=== PATIENT | female | born 1985 | race Caucasian/White ===

== ENCOUNTER 2024-05-19 13:31 | Inpatient (IN) | payer OTHER ==
[2024-05-18 22:30] VITALS: BP 113/69; TEMP 98.7; O2SAT 96
[~2024-05-19] VITALS: Ht 154.9 cm; Wt 71.2 kg
--- NOTE | 2024-05-19 13:58 | NUR ---
"Abdominal Pain started 3days ago feel Bloated/crampy"
--- NOTE | 2024-05-19 14:50 | NUR ---
mineral technologist at bedside
[2024-05-19 15:34] LABS: BASOPHILS % (AUTO) 0.6 % (0.0-2.0); EOSINOPHILS # (AUTO) 0.1 K/uL (0.0-0.7); EOSINOPHILS % (AUTO) 1.6 % (0.0-6.0); HEMATOCRIT 39 % (33-45); HEMOGLOBIN 13.3 g/dL (11.5-14.8); LYMPHOCYTES # (AUTO) 1.8 K/uL (0.8-4.8); LYMPHOCYTES % (AUTO) 21.8 % (20.0-44.0); MEAN CORPUSCULAR HEMOGLOBIN 30 PG (26.0-33.0); MEAN CORPUSCULAR HGB CONC 34 g/dl (31.0-36.0); MEAN CORPUSCULAR VOLUME 89 fL (82-100); MONOCYTES # (AUTO) 0.7 K/uL (0.1-1.30); MONOCYTES % (AUTO) 8.6 % (2.0-12.0); NEUTROPHILS # (AUTO) 5.5 K/uL (1.8-8.9); NEUTROPHILS % (AUTO) 67.4 % (43.0-81.0); PLATELET COUNT (AUTO) 300 K/uL (150-450); RED BLOOD CELL COUNT(AUTO) 4.39 MIL/uL (4.0-5.2); RED CELL DISTRIBUTION WIDTH 13.6 % (11.5-15.0); WHITE BLOOD COUNT (AUTO) 8.2 K/uL (4.3-11.0)
[2024-05-19 15:41] LABS: CALCIUM, SERUM 9.4 mg/dL (8.5-10.1); CREATININE 0.7 mg/dL (0.6-1.3); POTASSIUM 4.4 mmol/L (3.5-5.1)
[2024-05-19 15:46] LABS: BILIRUBIN,DIRECT 0.1 mg/dL (0.0-0.2); BILIRUBIN,TOTAL 0.7 mg/dL (0.2-1.0); TOTAL PROTEIN, SERUM 7.8 g/dL (6.4-8.2)
[2024-05-19 16:44] LABS: APPEARANCE,URINE CLEAR (CLEAR); BILIRUBIN,URINE NEGATIVE (NEGATIVE); BLOOD, URINE 2+ Ery/uL (NEGATIVE); COLOR,URINE YELLOW (YELLOW); KETONES,URINE NEGATIVE (NEGATIVE); LEUKOCYTE ESTERASE ,URINE 1+ (NEGATIVE); NITRITE, URINE NEGATIVE (NEGATIVE); PROTEIN,URINE NEGATIVE (NEGATIVE); UGLUCOSE NEGATIVE (NEGATIVE)
[2024-05-19 16:46] LABS: PREGNANCY TEST URINE QUAL NEGATIVE (NEGATIVE)
[2024-05-19 16:52] LABS: ADD URINE CULTURE YES; BACTERIA,URINE 1+ /HPF (None Seen); RBC,URINE 21-50 /HPF (0-2)
[2024-05-19 16:53] LABS: MUCUS,URINE Few /LPF (None Seen)
--- NOTE | 2024-05-19 17:12 | NUR ---
DELAY IN HCG RESULTS, CAME IN @1640HRS
--- NOTE | 2024-05-19 17:45 | NUR ---
Patient to CT via [facility]
[2024-05-19] MEDS ORDERED: CT SWABBABLE VALVE TRANS SET 1 EA INFUS.SET MC ONE (17:46)
[2024-05-19] MEDS ORDERED: IV NS 0.9% 250 ML IV ONE (17:46)
[2024-05-19] MEDS ORDERED: IOHEXOL-300 100 ML VIAL IV ONE (17:46)
--- NOTE | 2024-05-19 17:58 | NUR ---
Back from CT
--- NOTE | 2024-05-19 18:15 | NUR ---
GEN SURGERY PAGED
[2024-05-19] MEDS ORDERED: SUMA100T16 PO (18:29)
[2024-05-19] MEDS ORDERED: TOPI50TA24 PO (18:29)
--- NOTE | 2024-05-19 18:52 | NUR ---
Move sheet submitted (appendicitis, stable, Med Surg)
[2024-05-19] MEDS ORDERED: ANESTHESIA TRAY IN PYXIS 1 EA TRAY MC ONE ×2 (19:51→22:30)
--- NOTE | 2024-05-19 19:56 | NUR ---
Reportr given Conchis
[2024-05-19] MEDS ORDERED: ROCURONIUM BROMIDE 50 MG/5 ML ONE (20:24)
[2024-05-19] MEDS ORDERED: FENTANYL PF 250MCG/5ML AMPUL ONE (20:24)
[2024-05-19] MEDS ORDERED: SEVOFLURANE 250 ML BOTTLE IH ONE (20:24)
[2024-05-19] MEDS ORDERED: MIDAZOLAM HCL 2 MG/2ML VIAL ONE (20:24)
[2024-05-19] MEDS ORDERED: MORPHINE SULFATE INJ 2 MG/ML DISP.SYRIN IV PRN (20:30)
[2024-05-19] MEDS ORDERED: MAG HYDROX/AL HYDROX/SIMETH 30 ML UDC PO PRN (20:30)
[2024-05-19] MEDS ORDERED: MAGNESIUM HYDROXIDE 30 ML UDC PO PRN (20:30)
[2024-05-19] MEDS ORDERED: ONDANSETRON HCL/PF 4 MG/2 ML VIAL IVP PRN (20:30)
[2024-05-19] MEDS ORDERED: BUPIVACAINE MPF 0.5% W/EPI INJ 30 ML VIAL ONE (21:15)
[2024-05-19 22:30] VITALS: BP 113/69; TEMP 98.7; O2SAT 97
--- NOTE | 2024-05-19 22:30 | NUR ---
MS RESTAURANT HOST NOTES REPORT RECEIVED FROM MAGDALENE JULIO. PATIENT TRANSFERRED FROM OR VIA [facility] WITH NO SIGNS OF DISTRESS. AT BEDSIDE. PATIENT IS A/O X 4. S/P LAPAROSCOPIC APPENDECTOMY AND TRANSVERSES ABDOMINUS PLAIN BLOCK. ON ROOM AIR, BREATHING AND EVEN, SATURATING @ 97%. BP: 113/69 HR: 100. SKIN ASSESSMENT DONE, PATIENT WITH 4 SMALL ABDOMINAL SUTURES WITH STERI STRIPS, CLEAN, DRY AND INTACT. WILL CARRY OUT ACTIVE MD ORDERS. SAFETY MEASURES IN PLACE WITH BED IN LOWEST LOCKED POSITION, SIDE RAILS UP X 2, CALL LIGHT AND TRAY WITHIN EASY REACH. PLAN OF CARE ONGOING.
[2024-05-19] MEDS ORDERED: PIPERACI/TAZO 3.375GM/D5W 50ML PB IV ONE (23:15)
[2024-05-19] MEDS: TOPIRAMATE 100 MG TABLET PO SCH (23:54)
[2024-05-19] MEDS: PIPERACILLIN /TAZOBACTAM 3.375 G in IV D5W 50 ML IV SCH (23:54)
[2024-05-20] MEDS ORDERED: PIPERACILLIN /TAZOBACTAM 3.375 G in IV D5W 50 ML IV SCH
[2024-05-20] MEDS: KETOROLAC TROMETHAMINE 15 MG/ML VIAL IV ONE (00:49)
--- NOTE | 2024-05-20 00:55 | NUR ---
RN NOTES- PATIENT REFUSED MORPHINE OR ANY OPIOIDS FOR PAIN, REPORTS THAT SHE IS EXPERIENCING DIZZINESS WHEN TAKING THE MEDICATION. INFORMED MEDICAL PROGRAM SPECIALIST NARENDRA, ORDERED ONE TIME DOSE OF TORADOL 30MG IV. WILL MONITOR FOR ANY SIDE EFFECT OF THE MEDICATION. PLAN OF CARE ONGOING.
[2024-05-20] MEDS ORDERED: PIPERACI/TAZO 3.375GM/D5W 50ML PB IV ONE (05:07)
[2024-05-20] MEDS: ACETAMINOPHEN 325 MG TABLET PO PRN (05:35)
--- NOTE | 2024-05-20 05:36 | NUR ---
RN NOTES- PATIENT C/O OF HEADACHE WITH PAIN LEVEL OF 3/10. TYLENOL GIVEN PRN. BP: 105/68 HR: 94. DENIES ANY ACUTE RESPIRATORY DISTRESS AT THIS TIME. PLAN OF CARE ONGOING.
[2024-05-20 06:11] LABS: BASOPHILS % (AUTO) 0.1 % (0.0-2.0); HEMATOCRIT 38 % (33-45); HEMOGLOBIN 12.8 g/dL (11.5-14.8); LYMPHOCYTES # (AUTO) 0.7 K/uL (0.8-4.8); LYMPHOCYTES % (AUTO) 5.5 % (20.0-44.0); MEAN CORPUSCULAR HEMOGLOBIN 30 PG (26.0-33.0); MEAN CORPUSCULAR HGB CONC 34 g/dl (31.0-36.0); MEAN CORPUSCULAR VOLUME 88 fL (82-100); MONOCYTES # (AUTO) 0.4 K/uL (0.1-1.30); MONOCYTES % (AUTO) 2.8 % (2.0-12.0); NEUTROPHILS # (AUTO) 12.1 K/uL (1.8-8.9); NEUTROPHILS % (AUTO) 91.6 % (43.0-81.0); PLATELET COUNT (AUTO) 296 K/uL (150-450); RED BLOOD CELL COUNT(AUTO) 4.27 MIL/uL (4.0-5.2); WHITE BLOOD COUNT (AUTO) 13.2 K/uL (4.3-11.0)
--- NOTE | 2024-05-20 06:46 | NUR ---
MS RN CLOSING NOTES PATIENT AWAKE IN BED, WATCHING TV. A/O X 4. STABLE ON ROOM AIR. IV ACCESS LEFT ANTECUBITAL #20G ON SALINE LOCK, INTACT, PATENT AND FLUSHING WELL. PATIENT IS ON FULL LIQUID DIET THEN ADVANCE TOLERATED. PATIENT IS USING BEDPAN AND URINATED 6 TIMES. S/P LAPAROSCOPIC APPENDECTOMY WITH 4 SMALL ABDOMINAL SUTURES ON STERI STRIPS. ALL NEEDS ATTENDED. SAFETY MEASURES MAINTAINED DURING SHIFT. WILL ENDORSE TO THE NEXT NURSE ON DUTY FOR CONTINUITY OF CARE.
[2024-05-20 06:56] LABS: CALCIUM, SERUM 9.3 mg/dL (8.5-10.1); CREATININE 0.7 mg/dL (0.6-1.3); MAGNESIUM 2.1 mg/dL (1.8-2.4); PHOSPHORUS 3.1 mg/dL (2.5-4.9); POTASSIUM 4.1 mmol/L (3.5-5.1)
--- NOTE | 2024-05-20 07:25 | NUR ---
RN OPENING NOTE Received pt in bed, awake. On room air, tolerating well. A/O x 4, able to make needs known, no c/o pain/discomfort at this time. IV access in LAC #18g, sl. Surgical incision in abdomen noted. Safety measures maintained. Will continue with plan of care.
[2024-05-20] MEDS ORDERED: HYDROCODONE/APAP 5/325MG TABLET PO PRN (08:00)
[2024-05-20 08:17] VITALS: BP 106/72; TEMP 98.6; O2SAT 98
[2024-05-20] MEDS: PANTOPRAZOLE 40 MG VIAL IV SCH (08:19)
[2024-05-20] MEDS: CIPROFLOXACIN IV RTU 200 ML IV SCH (08:19)
[2024-05-20] MEDS: SUMATRIPTAN SUCCINATE 100 MG TABLET PO PRN (08:51)
--- NOTE | 2024-05-20 08:51 | NUR ---
RN NOTE Pt c/o migraine, Imitrex 100mg po prn given, will continue to monitor.
[2024-05-20] MEDS: PIPERACILLIN /TAZOBACTAM 3.375 G in IV D5W 50 ML IV SCH (12:16)
[2024-05-20] MEDS ORDERED: CIPR500S2 PO (12:28)
--- NOTE | 2024-05-20 14:30 | NUR ---
SCHOOL TRAFFIC GUARD NOTE Pt discharged to home in stable condition. A/O x 4, able to make needs known, c/o minimal pain in surgical site, no active bleeding noted. On room air, tolerating well. Tylenol 650mg po prn given prior dc. Discharge packet and teaching given to pt and , verbalized understanding. IV access removed, clean and dry dressing applied, no active bleeding noted. Name armband removed. Pt left the unit at 1425 via wheelchair accompanied by and Therese PORTILLO MD and Charge Nurse aware of discharge.
== END 2024-05-20 14:35 | disposition home or self-care (01) | DRG 398 ==
LOC: ER 13:31 → MED 19:48
PROC: 0DTJ4ZZ Resection of Appendix, Percutaneous Endoscopic Approach (ICD-10-PCS; principal; 2024-05-19)
DX: K35.80 Unspecified acute appendicitis (principal); N39.0 Urinary tract infection, site not specified; B96.89 Other specified bacterial agents as the cause of diseases classified elsewhere; G43.909 Migraine, unspecified, not intractable, without status migrainosus; Z79.899 Other long term (current) drug therapy; G89.29 Other chronic pain; M54.50 Low back pain, unspecified
CPT/HCPCS: 36415; 80048-TC; 80076-TC; 81001; 83690-TC; 83735-TC; 84100-TC; 84703-TC; 85025-TC; 87086-TC; 88304-TC; A4223; A6253; G0378; J0330; J0690; J0744; J1100; J1885; J2250; J2405; J2470; J2543; J2704; J2765; J3010; J3490; J7030; J7040; J7050; J7060; Q9967